=== PATIENT | female | born 1950 | race Caucasian/White ===

== ENCOUNTER → 2024-07-04 | Outpatient (CLI) | payer MEDICARE, SELFPAY ==
--- NOTE | 2024-07-04 | FLU_PTH ---
PATIENT: SATYA LA) Demi LOC: [facility] #:[id number] AGE/SX: 74/F ROOM: RE07/04/[address]: Dr. Jabier Roman MD : [id number] BED: DIS: 07/04/2024 SPEC #: [id number] RECD: 07/04/24 10:03 STATUS: SAÚL REJuanito #: [id number] CHRISTIANO: 07/04/24 00:[address]: Jabier Roman DEPT: CYTOLOGY RECD BY: Gerry Jiménez ENTERED: 07/04/24 10:43 SP TYPE: Fluid OTHR DR: Dr. Jonathon Wilson MD Tissues: A - Thyroid gland, NOS B - Thyroid gland, NOS Procedures: Special Stain Group II Surgery Specimen Level IV Cytospin Fluid HEADER OPERATION: Fine needle aspiration of right thyroid nodule PRE-OP DIAGNOSIS: Right thyroid nodule TISSUE SUBMITTED: A- Right thyroid nodule fluid for cytology, B- Right thyroid nodule slides DIAGNOSIS CYTOLOGY A. Right thyroid nodule fluid, fine needle aspiration (cytospins and cellblock): Atypical follicular cells of undetermined significance, [place] Category III. Adequate for evaluation. See comment. B. Right thyroid nodule, fine needle aspiration (smears): Atypical follicular cells of undetermined significance, [place] Category III. Adequate for evaluation. See comment. NAHEED 07/05/2024 COMMENT A. Per recommendations and a clinician-approved plan (a call was made to the referring doctor about the recommendation), genomic testing (Afirma) has been submitted. Results will be reported as an addendum and faxed to clinician. The [place] System for thyroid diagnostic categorization was used in the evaluation of this case. Correlation with clinical, radiologic findings and appropriate follow up are necessary. CYTOLOGY STUDY Slides are reviewed. CYTOLOGY GROSS A. Received is 30 ml of fluid labeled with the patient's name and and designated per the requisition as Right thyroid nodule. Submitted for cytology preparation including cell block. B. Received are 4 smears labeled with the patient's name and designated per the requisition as Right thyroid nodule. Submitted for staining. Mr 07/04/2024 TC:5 CPT: [id number] ADDENDUM ADDENDUM ADDENDUM ADDENDUM ADDENDUM ADDENDUM ADDENDUM ADDENDUM ADDENDUM ADDENDUM 07/18/2024 09:27 ADDENDUM 07/18/2024 09:27 ADDENDUM 07/18/2024 09:27 ADDENDUM 07/18/2024 09:27 ADDENDUM 07/18/2024 09:27 AFIRMA RESULTS REPORT RESULTS INTERPRETATION: The result of this 1.9 cm [place] III nodule A is Afirma GSC benign, which suggests a low risk of cancer of approximately 4%. Treatment like a cytologically benign nodule may be appropriate, including clinical correlation. Afirma XA is not performed on GSC benign nodule. TERT promoter region analysis is not performed on GSC benign nodules. Please see complete report in e-chart or EMR
== END | disposition home or self-care (01) ==
PROVIDERS: PCP Family Medicine; Referring Provider Surgery; Visit Provider Surgery
DX: E04.1 Nontoxic single thyroid nodule (principal)